=== PATIENT | female | born 1950 | race Caucasian/White ===

== ENCOUNTER 2016-11-21 12:30 | Outpatient (CLI) | payer MEDICARE, BC | END 2016-11-21 23:59 | disposition home or self-care (01) | LOC: WOU 12:30 | PROVIDERS: ATTEND Podiatrist Foot & Ankle Surgery | DX: L84 Corns and callosities (principal); M20.42 Other hammer toe(s) (acquired), left foot; M20.12 Hallux valgus (acquired), left foot; M20.11 Hallux valgus (acquired), right foot; R60.0 Localized edema; Z79.899 Other long term (current) drug therapy; Z79.82 Long term (current) use of aspirin; Z87.891 Personal history of nicotine dependence | CPT/HCPCS: A6402; G0463 ==

== ENCOUNTER 2016-11-29 13:05 | Outpatient (CLI) | payer MEDICARE, BC | END 2016-11-29 23:59 | disposition home or self-care (01) | LOC: WOU 13:05 | PROVIDERS: ATTEND Podiatrist Foot & Ankle Surgery | DX: L84 Corns and callosities (principal); M20.42 Other hammer toe(s) (acquired), left foot; M20.12 Hallux valgus (acquired), left foot; M20.11 Hallux valgus (acquired), right foot | CPT/HCPCS: A6402; G0463 ==

== ENCOUNTER 2016-12-26 10:59 | Outpatient (CLI) | payer MEDICARE, BC | END 2016-12-26 23:59 | disposition home or self-care (01) | LOC: WOU 10:59 | PROVIDERS: ATTEND Podiatrist Foot & Ankle Surgery | DX: L84 Corns and callosities (principal); M20.42 Other hammer toe(s) (acquired), left foot; M20.12 Hallux valgus (acquired), left foot; M20.11 Hallux valgus (acquired), right foot | CPT/HCPCS: A6402; G0463 ==

== ENCOUNTER 2016-12-26 11:48 | Outpatient (CLI) | payer MEDICARE, BC | END 2016-12-26 23:59 | disposition home or self-care (01) | LOC: RAD 11:48 | PROVIDERS: ATTEND Podiatrist Foot & Ankle Surgery | DX: M89.8X6 Other specified disorders of bone, lower leg (principal) | CPT/HCPCS: 73590-TC ==

== ENCOUNTER 2017-01-05 11:50 | Outpatient (CLI) | payer MEDICARE, BC | END 2017-01-05 23:59 | disposition home or self-care (01) | LOC: WOU 11:50 | PROVIDERS: ATTEND Podiatrist Foot & Ankle Surgery | DX: M79.662 Pain in left lower leg (principal); R60.0 Localized edema | CPT/HCPCS: G0463 ==

== ENCOUNTER 2018-12-18 13:15 | Outpatient (CLI) | payer MEDICARE, BC | END 2018-12-18 23:59 | disposition home or self-care (01) | LOC: WOU 13:15 | PROVIDERS: ATTEND Podiatrist Foot & Ankle Surgery | DX: L84 Corns and callosities (principal); M89.9 Disorder of bone, unspecified; M20.42 Other hammer toe(s) (acquired), left foot; B35.1 Tinea unguium | CPT/HCPCS: G0463 ==

== ENCOUNTER 2020-07-13 10:45 | Outpatient (CLI) | payer MEDICARE, BC ==
[2020-07-13] MEDS ORDERED: CADEXOMER IODINE UD 5 GM TUBE ONE (11:52)
== END 2020-07-13 23:59 | disposition home or self-care (01) ==
LOC: WOU 10:45
PROVIDERS: ATTEND Podiatrist Foot & Ankle Surgery
DX: L89.892 Pressure ulcer of other site, stage 2 (principal); L84 Corns and callosities; M25.775 Osteophyte, left foot; M79.672 Pain in left foot
CPT/HCPCS: 11042; A6209

== ENCOUNTER 2020-07-16 13:12 | Outpatient (CLI) | payer MEDICARE, BC | END 2020-07-16 23:59 | disposition home or self-care (01) | LOC: RAD 13:12 | PROVIDERS: ATTEND Podiatrist Foot & Ankle Surgery | DX: M20.12 Hallux valgus (acquired), left foot (principal); M19.272 Secondary osteoarthritis, left ankle and foot; M79.89 Other specified soft tissue disorders; M20.42 Other hammer toe(s) (acquired), left foot; L97.529 Non-pressure chronic ulcer of other part of left foot with unspecified severity | CPT/HCPCS: 73630-TC ==

== ENCOUNTER 2020-07-20 10:55 | Outpatient (CLI) | payer MEDICARE, BC ==
[2020-07-20] MEDS ORDERED: LIDOCAINE SOLN 4% 50 ML BOTTLE ONE (11:15)
== END 2020-07-20 23:59 | disposition home or self-care (01) ==
LOC: WOU 10:55
PROVIDERS: ATTEND Podiatrist Foot & Ankle Surgery
DX: M20.12 Hallux valgus (acquired), left foot (principal); M19.072 Primary osteoarthritis, left ankle and foot; M25.775 Osteophyte, left foot; M79.675 Pain in left toe(s); L84 Corns and callosities
CPT/HCPCS: G0463

== ENCOUNTER 2020-08-03 11:00 | Outpatient (CLI) | payer MEDICARE, BC | END 2020-08-03 23:59 | disposition home or self-care (01) | LOC: WOU 11:00 | PROVIDERS: ATTEND Podiatrist Foot & Ankle Surgery | DX: L84 Corns and callosities (principal); M25.775 Osteophyte, left foot; M20.12 Hallux valgus (acquired), left foot; Z98.1 Arthrodesis status; M79.675 Pain in left toe(s) | CPT/HCPCS: G0463 ==

== ENCOUNTER 2020-09-10 12:27 | Outpatient (CLI) | payer MEDICARE, BC | END 2020-09-10 23:59 | disposition home or self-care (01) | LOC: WOU 12:27 | PROVIDERS: ATTEND Podiatrist Foot & Ankle Surgery | DX: L84 Corns and callosities (principal); M25.775 Osteophyte, left foot; M79.675 Pain in left toe(s) | CPT/HCPCS: G0463 ==

== ENCOUNTER 2020-10-22 11:00 | Outpatient (CLI) | payer MEDICARE, BC | END 2020-10-22 23:59 | disposition home or self-care (01) | LOC: WOU 11:00 | PROVIDERS: ATTEND Podiatrist Foot & Ankle Surgery | DX: L84 Corns and callosities (principal); M25.775 Osteophyte, left foot; M79.675 Pain in left toe(s) | CPT/HCPCS: G0463 ==

== ENCOUNTER 2020-11-26 11:25 | Outpatient (CLI) | payer MEDICARE, BC | END 2020-11-26 23:59 | disposition home or self-care (01) | LOC: WOU 11:25 | PROVIDERS: ATTEND Podiatrist Foot & Ankle Surgery | DX: M25.775 Osteophyte, left foot (principal); L84 Corns and callosities; B35.1 Tinea unguium; M79.672 Pain in left foot | CPT/HCPCS: G0463 ==

== ENCOUNTER 2021-02-08 11:35 | Outpatient (CLI) | payer MEDICARE, BC ==
[2021-02-08] MEDS ORDERED: UREA 10% -AHA 4% CREAM 57 GM TUBE ONE (12:05)
== END 2021-02-08 23:59 | disposition home or self-care (01) ==
LOC: WOU 11:35
PROVIDERS: ATTEND Podiatrist Foot & Ankle Surgery
DX: L84 Corns and callosities (principal); M25.775 Osteophyte, left foot; B35.1 Tinea unguium; M79.672 Pain in left foot; M79.671 Pain in right foot
CPT/HCPCS: G0463

== ENCOUNTER 2021-03-16 13:55 | Outpatient (CLI) | payer MEDICARE, BC | END 2021-03-16 23:59 | disposition home or self-care (01) | LOC: WOU 13:55 | PROVIDERS: ATTEND Podiatrist Foot & Ankle Surgery | DX: M25.775 Osteophyte, left foot (principal); L84 Corns and callosities; B35.1 Tinea unguium; M79.672 Pain in left foot; M79.671 Pain in right foot | CPT/HCPCS: G0463 ==

== ENCOUNTER 2021-04-05 13:10 | Outpatient (CLI) | payer MEDICARE, BC ==
[2021-04-05] MEDS ORDERED: LIDOCAINE SOLN 4% 50 ML BOTTLE ONE (13:35)
[2021-04-05] MEDS ORDERED: MUPIROCIN 2% CREAM 15 GM TUBE TP ONE (14:02)
== END 2021-04-05 23:59 | disposition home or self-care (01) ==
LOC: WOU 13:10
PROVIDERS: ATTEND Podiatrist Foot & Ankle Surgery
DX: L89.893 Pressure ulcer of other site, stage 3 (principal); M25.775 Osteophyte, left foot; L84 Corns and callosities; B35.1 Tinea unguium; M79.672 Pain in left foot; M79.671 Pain in right foot
CPT/HCPCS: 11042

== ENCOUNTER 2021-04-12 11:10 | Outpatient (CLI) | payer MEDICARE, BC | END 2021-04-12 23:59 | disposition home or self-care (01) | LOC: WOU 11:10 | PROVIDERS: ATTEND Podiatrist Foot & Ankle Surgery | DX: L89.893 Pressure ulcer of other site, stage 3 (principal); M25.775 Osteophyte, left foot; B35.1 Tinea unguium; M79.672 Pain in left foot; M79.671 Pain in right foot; L84 Corns and callosities | CPT/HCPCS: 11042 ==

== ENCOUNTER 2021-04-19 11:05 | Outpatient (CLI) | payer MEDICARE, BC | END 2021-04-19 23:59 | disposition home or self-care (01) | LOC: WOU 11:05 | PROVIDERS: ATTEND Podiatrist Foot & Ankle Surgery | DX: L89.893 Pressure ulcer of other site, stage 3 (principal); M25.775 Osteophyte, left foot; B35.1 Tinea unguium; L84 Corns and callosities; M79.672 Pain in left foot; M79.671 Pain in right foot | CPT/HCPCS: 11042 ==

== ENCOUNTER 2021-04-27 12:40 | Outpatient (CLI) | payer MEDICARE, BC | END 2021-04-27 23:59 | disposition home or self-care (01) | LOC: WOU 12:40 | PROVIDERS: ATTEND Podiatrist Foot & Ankle Surgery | DX: L89.893 Pressure ulcer of other site, stage 3 (principal); L84 Corns and callosities; M25.775 Osteophyte, left foot; B35.1 Tinea unguium; M79.672 Pain in left foot; M79.671 Pain in right foot | CPT/HCPCS: 11042 ==

== ENCOUNTER 2021-05-03 11:10 | Outpatient (CLI) | payer MEDICARE, BC ==
[2021-05-03] MEDS ORDERED: LIDOCAINE 2% JEL 5 ML TUBE ONE (11:27)
== END 2021-05-03 23:59 | disposition home or self-care (01) ==
LOC: WOU 11:10
PROVIDERS: ATTEND Podiatrist Foot & Ankle Surgery
DX: M25.775 Osteophyte, left foot (principal); L84 Corns and callosities; B35.1 Tinea unguium; M79.672 Pain in left foot; M79.671 Pain in right foot
CPT/HCPCS: A6209; G0463

== ENCOUNTER 2021-05-10 11:01 | Outpatient (CLI) | payer MEDICARE, BC | END 2021-05-10 23:59 | disposition home or self-care (01) | LOC: WOU 11:01 | PROVIDERS: ATTEND Podiatrist Foot & Ankle Surgery | DX: M25.775 Osteophyte, left foot (principal); L84 Corns and callosities; B35.1 Tinea unguium; M79.672 Pain in left foot; M79.671 Pain in right foot | CPT/HCPCS: G0463 ==

== ENCOUNTER 2021-05-24 10:20 | Outpatient (CLI) | payer MEDICARE, BC ==
[2021-05-24] MEDS ORDERED: LIDOCAINE 2% JEL 5 ML TUBE ONE (10:43)
== END 2021-05-24 23:59 | disposition home or self-care (01) ==
LOC: WOU 10:20
PROVIDERS: ATTEND Podiatrist Foot & Ankle Surgery
DX: M25.775 Osteophyte, left foot (principal); L84 Corns and callosities; B35.1 Tinea unguium; M79.672 Pain in left foot; M79.671 Pain in right foot
CPT/HCPCS: G0463

== ENCOUNTER 2021-06-10 10:55 | Outpatient (CLI) | payer MEDICARE, BC | END 2021-06-10 23:59 | disposition home or self-care (01) | LOC: WOU 10:55 | PROVIDERS: ATTEND Podiatrist Foot & Ankle Surgery | DX: L84 Corns and callosities (principal); B35.1 Tinea unguium; M25.775 Osteophyte, left foot; M20.42 Other hammer toe(s) (acquired), left foot; M20.41 Other hammer toe(s) (acquired), right foot; M79.672 Pain in left foot; M79.671 Pain in right foot | CPT/HCPCS: G0463 ==

== ENCOUNTER 2021-07-19 11:09 | Outpatient (CLI) | payer MEDICARE, BC ==
[2021-07-19] MEDS ORDERED: LIDOCAINE 2% JEL 5 ML TUBE ONE (11:17)
== END 2021-07-19 23:59 | disposition home or self-care (01) ==
LOC: WOU 11:09
PROVIDERS: ATTEND Podiatrist Foot & Ankle Surgery
DX: L84 Corns and callosities (principal); M25.775 Osteophyte, left foot; B35.1 Tinea unguium; L60.0 Ingrowing nail; M79.672 Pain in left foot; M79.671 Pain in right foot
CPT/HCPCS: G0463

== ENCOUNTER 2021-08-31 12:50 | Outpatient (CLI) | payer MEDICARE, BC ==
[2021-08-31] MEDS ORDERED: LIDOCAINE 2% JEL 5 ML TUBE ONE (12:52)
[2021-08-31] MEDS ORDERED: UREA 10% -AHA 4% CREAM 57 GM TUBE ONE (13:47)
== END 2021-08-31 23:59 | disposition home or self-care (01) ==
LOC: WOU 12:50
PROVIDERS: ATTEND Podiatrist Foot & Ankle Surgery
DX: M25.775 Osteophyte, left foot (principal); L84 Corns and callosities; L60.0 Ingrowing nail; B35.1 Tinea unguium; M79.672 Pain in left foot; M79.671 Pain in right foot
CPT/HCPCS: G0463

== ENCOUNTER 2021-10-18 10:55 | Outpatient (CLI) | payer MEDICARE, BC ==
[2021-10-18] MEDS ORDERED: LIDOCAINE 2% JEL 5 ML TUBE ONE (11:03)
== END 2021-10-18 23:59 | disposition home or self-care (01) ==
LOC: WOU 10:55
PROVIDERS: ATTEND Podiatrist Foot & Ankle Surgery
DX: M25.775 Osteophyte, left foot (principal); M20.42 Other hammer toe(s) (acquired), left foot; L84 Corns and callosities; L60.0 Ingrowing nail; B35.1 Tinea unguium; M79.672 Pain in left foot; M79.671 Pain in right foot
CPT/HCPCS: G0463

== ENCOUNTER 2021-11-29 10:55 | Outpatient (CLI) | payer MEDICARE, BC ==
[2021-11-29] MEDS ORDERED: LIDOCAINE SOLN 4% 50 ML BOTTLE ONE (11:19)
== END 2021-11-29 23:59 | disposition home or self-care (01) ==
LOC: WOU 10:55
PROVIDERS: ATTEND Podiatrist Foot & Ankle Surgery
DX: L84 Corns and callosities (principal); M25.775 Osteophyte, left foot; L60.0 Ingrowing nail; B35.1 Tinea unguium; M79.672 Pain in left foot; M79.671 Pain in right foot
CPT/HCPCS: G0463

== ENCOUNTER 2022-02-28 11:00 | Outpatient (CLI) | payer MEDICARE, BC ==
[2022-02-28] MEDS ORDERED: LIDOCAINE SOLN 4% 50 ML BOTTLE ONE ×2 (11:08→11:12)
== END 2022-02-28 23:59 | disposition home or self-care (01) ==
LOC: WOU 11:00
PROVIDERS: ATTEND Podiatrist Foot & Ankle Surgery
DX: L60.0 Ingrowing nail (principal); L84 Corns and callosities; M19.072 Primary osteoarthritis, left ankle and foot; M79.675 Pain in left toe(s); M79.674 Pain in right toe(s)
CPT/HCPCS: G0463

== ENCOUNTER 2022-05-16 11:01 | Outpatient (CLI) | payer MEDICARE, BC | END 2022-05-16 23:59 | disposition home or self-care (01) | LOC: WOU 11:01 | PROVIDERS: ATTEND Podiatrist Foot & Ankle Surgery | DX: L84 Corns and callosities (principal); L60.0 Ingrowing nail; M79.675 Pain in left toe(s); M79.674 Pain in right toe(s) | CPT/HCPCS: G0463 ==

== ENCOUNTER 2022-08-08 12:56 | Outpatient (CLI) | payer MEDICARE, BC | END 2022-08-08 23:59 | disposition home or self-care (01) | LOC: WOU 12:56 | PROVIDERS: ATTEND Podiatrist Foot & Ankle Surgery | DX: L84 Corns and callosities (principal); L60.0 Ingrowing nail; L60.1 Onycholysis; M79.675 Pain in left toe(s); M79.674 Pain in right toe(s) | CPT/HCPCS: G0463 ==

== ENCOUNTER 2023-01-02 10:47 | Outpatient (CLI) | payer MEDICARE, BC ==
[~2023-01-02 10:47] MED LIST: LIDOCAINE 2% JEL 5 ML TUBE ONE
== END 2023-01-02 23:59 | disposition home or self-care (01) ==
LOC: WOU 10:47
PROVIDERS: ATTEND Podiatrist Foot & Ankle Surgery
DX: L84 Corns and callosities (principal); L60.0 Ingrowing nail; L60.1 Onycholysis; M79.675 Pain in left toe(s); M79.674 Pain in right toe(s); M19.079 Primary osteoarthritis, unspecified ankle and foot; M20.10 Hallux valgus (acquired), unspecified foot
CPT/HCPCS: G0463